=== PATIENT | male | born 1940 | race Caucasian/White ===

== ENCOUNTER → 2018-04-22 | Day surgery (SDC) | payer MEDICARE, OTHER ==
[~2018-04-22] MED LIST: CARVEDILOL12.5 MG PO; CELEXA20 MG PO; COSOPT OCUMETER10 M1 OPHTHALMIC; FINACEA50 GM TOP; KEPPRA 500 MG500 M1 PO; NORCO 5-325 TA1 EACH PO; NORVASC2.5 MG PO; RITUXAN100 MG/10 IV; VITAMIN D-32000 UNIT PO; XALATAN2.5 ML OPHTHALMIC; ZOCOR20 MG PO
[2018-04-22 07:30] LABS: HEMOGLOBIN 11.2 gm/dL (14.0-18.0); MCH 31.8 pg (26.0-34.0); MCHC 34.1 g/dL (28.0-37.0); MCV 93.3 fL (80.0-100.0); MPV 7.6 fl. (7.2-11.1); RBC 3.54 mil/uL (4.50-6.00); RDW-CV 12.9 % (10.5-14.5)
[2018-04-22 07:38] LABS: CALCIUM 9.8 mg/dL (8.5-10.1); CREATININE 4.3 mg/dL (0.6-1.3); POTASSIUM 4.5 mmol/L (3.5-5.1)
[2018-04-22 07:42] LABS: ALBUMIN 3.7 g/dL (3.4-5.0); TOTAL BILIRUBIN 0.6 mg/dL (<0.1-1.0); TOTAL PROTEIN 6.9 g/dL (6.4-8.2)
--- NOTE | 2018-04-23 12:55 | EKG ---
[place] [address] ELECTROCARDIOGRAM REPORT Name: AZEEM URIBE Room: [facility]#: [id number] Admission: 04/22/18 Attend Phys: Reinier Mathis Discharge: Date of : 42 Report #: [id number] THIS REPORT FOR: //name// [facility] Test Date: 2018-04-22 Test Time: 07:41:46 Pat Name: AZEEM CRUZSHELBI Department: Room: Gender: M [employer]: : 1940 Requested By: Reinier Mathis Order Number: [id number] MD: Sylvain Gandhi Measurements Intervals [place] Rate: 52 P: 68 WA: 177 QRS: 52 QRSD: 118 T: 46 QT: 489 QTc: 455 Interpretive Statements Sinus rhythm Nonspecific intraventricular conduction delay Minimal ST depression, anterolateral leads No previous ECG available for comparison Electronically Signed On 04-23-2018 12:54:45 CDT by Sylvain Gandhi [email or web address] <ELECTRONICALLY SIGNED> By: Sylvain Gandhi MD, [facility] 04/23/18 1254 [id number] [id number] Sylvain Gandhi MD, FACC /EPI
--- NOTE | 2018-05-08 13:07 | OP ---
[facility] [address] [place] [address] OPERATIVE REPORT Name: AZEEM URIBE Room: [facility]#: [id number] Admission: 04/22/18 Attend Phys: Reinier Mathis Discharge: Date of : 42 Report #: [id number] THIS REPORT FOR: //name// CC: Reinier Sapp DATE OF SERVICE: 04/22/2018 PREOPERATIVE DIAGNOSIS: End-stage renal disease. POSTOPERATIVE DIAGNOSIS: End-stage renal disease. OPERATION: 1. Laparoscopic placement of tunneled intraperitoneal catheter. 2. Laparoscopic omentopexy. SURGEON: Reinier Mathis MD ANESTHESIA: General. ESTIMATED BLOOD LOSS: Minimal. SPECIMENS: None. DESCRIPTION OF PROCEDURE: After informed consent was obtained, the patient had been brought to the operating room and placed supine. SCDs were placed and working, preoperative antibiotics were administered, general anesthesia was induced. The abdomen was prepped and draped in the usual sterile fashion. A 5 mm incision was made in the left upper quadrant. A 5 mm trocar was placed under direct vision. Pneumoperitoneum was established. A left-sided 5 mm port was placed. A left rectus 8 mm trocar was placed approximately 3 cm above the umbilicus. I placed the catheter through the 8 mm port. It was then tunneled into the left upper quadrant of the abdomen. The catheter then flushed and guzman easily. I took the omentum and brought it up to the abdominal wall in the right upper quadrant. A suture passer with 2-0 Vicryl was used to pass it through the omentum and then up to the anterior abdominal wall. The ports were then removed under direct vision. The catheter flushed very easily with 500 mL of heparinized saline. The incisions were then closed with a 4-0 Monocryl. Incisions were dressed with Steri-Strips. Sterile occlusive dressing was applied. COMPLICATIONS: [place] [address] OPERATIVE REPORT Name: AZEEM URIBE Room: [facility]#: [id number] Admission: 04/22/18 Attend Phys: Reinier Mathis Discharge: Date of : 42 Report #: [id number] DISPOSITION: The patient was taken to recovery in satisfactory condition. <ELECTRONICALLY SIGNED> By: Reinier Mathis MD 05/08/18 1307 [id number] Mathis MD /nt
== END | disposition home or self-care (01) ==
LOC: M.SUR 06:50
PROVIDERS: Surgery
DX: N18.6 End stage renal disease (principal); M13.0 Polyarthritis, unspecified; I77.6 Arteritis, unspecified; F17.210 Nicotine dependence, cigarettes, uncomplicated; Z79.899 Other long term (current) drug therapy; Z88.8 Allergy status to other drugs, medicaments and biological substances; Z98.890 Other specified postprocedural states